=== PATIENT | female | born 1955 | race American Indian/Alaskan Native ===

== ENCOUNTER 2018-04-16 11:36 | Emergency (ER) | payer BC, OTHER ==
[2018-04-16 11:48] VITALS: BP 158/73
[2018-04-16] MEDS ORDERED: MORPHINE IM ONE ×2 (13:18→15:39)
[2018-04-16] MEDS ORDERED: ZOFRAN IM ONE (13:18)
--- NOTE | 2018-04-16 13:24 | Emergency Department Report ---
ED General Adult HPI - General Chief complaint: Extremity Injury, Lower Stated complaint: RT LEG PAIN/BACK PAIN Time Seen by Provider: 04/16/18 12:46 Source: patient Mode of arrival: Wheelchair Limitations: No Limitations - History of Present Illness Initial comments: Patient is 62 years old female with history of bilateral knee arthritis. Patient presented to the ER complaining of right knee pain since yesterday. Patient stated that she was told by her orthopedic doctor that she will need a knee replacement. She stated that she had a steroid injection recently. Patient denied any fever, nausea or vomiting. No recent injury. No other complaints. - Related Data Home Medications Medication Instructions Recorded Confirmed Last Taken Fluticasone [Flonase] 1 spray NS QDAY 08/02/15 08/02/15 Unknown Gabapentin [Neurontin] 100 mg PO Q8HR 08/02/15 08/02/15 08/02/15 Hydrochlorothiazide [Hctz] 12.5 mg PO QDAY 08/02/15 08/02/15 Unknown Loratadine [Claritin] 10 mg PO DAILY 08/02/15 08/02/15 Unknown Meloxicam [Mobic] 15 mg PO DAILY 08/02/15 08/02/15 08/02/15 Previous Rx's Medication Instructions Recorded Last Taken Type oxyCODONE /ACETAMINOPHEN [Percocet 1 tab PO Q6HR PRN #20 tablet 08/02/15 Unknown Rx 5/325] Allergies Allergy/AdvReac Type Severity Reaction Status Date / Time latex Allergy Hives Verified 08/02/15 13:54 ED Review of Systems ROS: Stated complaint: RT LEG PAIN/BACK PAIN Other details as noted in HPI Comment: All other systems reviewed and negative Constitutional: denies: chills, fever Respiratory: denies: cough, shortness of breath Cardiovascular: denies: chest pain, palpitations Gastrointestinal: denies: abdominal pain, nausea Neurological: denies: headache, weakness, numbness, paresthesias ED Past Medical Hx - Past Medical History Hx Hypertension: Yes Hx GERD: Yes Additional medical history: DVT-left leg,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, elevated cholesterol - Surgical History Additional Surgical History: D&C?,Left knee total replacment, - Social History Smoking Status: Never Smoker Substance Use Type: None - Medications Home Medications: Home Medications Medication Instructions Recorded Confirmed Last Taken Type Fluticasone [Flonase] 1 spray NS QDAY 08/02/15 08/02/15 Unknown History Gabapentin [Neurontin] 100 mg PO Q8HR 08/02/15 08/02/15 08/02/15 History Hydrochlorothiazide [Hctz] 12.5 mg PO QDAY 08/02/15 08/02/15 Unknown History Loratadine [Claritin] 10 mg PO DAILY 08/02/15 08/02/15 Unknown History Meloxicam [Mobic] 15 mg PO DAILY 08/02/15 08/02/15 08/02/15 History oxyCODONE /ACETAMINOPHEN [Percocet 1 tab PO Q6HR PRN #20 tablet 08/02/15 Unknown Rx 5/325] ED Physical Exam - General Limitations: No Limitations General appearance: alert, in no apparent distress - Head Head exam: Present: atraumatic, normocephalic, normal inspection - Eye Eye exam: Present: normal appearance - ENT ENT exam: Present: normal exam - Neck Neck exam: Present: normal inspection - Respiratory Respiratory exam: Present: normal lung sounds bilaterally - Cardiovascular Cardiovascular Exam: Present: regular rate, normal rhythm, normal heart sounds - GI/Abdominal GI/Abdominal exam: Present: soft, normal bowel sounds. Absent: distended, tenderness, guarding, rebound, rigid, organomegaly, mass, bruit, pulsatile mass , hernia - Expanded Lower Extremity Exam Right Knee exam: Present: normal inspection, tenderness, swelling. Absent: full ROM ( decreased range of motion), abrasion, laceration, ecchymosis, deformity, crepidus, dislocation, erythema, effusion, pain w/ pronation/supination, posterior draw sign, pain/laxity with valgus, pain/laxity with varus Neuro vascular tendon exam: Present: no vascular compromise - Neurological Exam Neurological exam: Present: alert, oriented X3, CN II-XII intact, normal gait, reflexes normal - Skin Skin exam: Present: warm, intact, normal color ED Course Vital Signs 04/16/18 04/16/18 11:41 14:11 Temperature 98 F Pulse Rate 88 Respiratory 20 18 Rate Blood Pressure 158/73 O2 Sat by Pulse 99 Oximetry Critical care attestation.: If time is entered above; I have spent that time in minutes in the direct care of this critically ill patient, excluding procedure time. ED Disposition Clinical Impression: Knee pain, right Disposition: DC-01 TO HOME OR SELFCARE Is pt being admited?: No Condition: Stable Instructions: Knee Pain (ED), Osteoarthritis (ED) Referrals: PRIMARY CARE, [Primary Care Provider] - 3-5 Days
--- NOTE | 2018-04-16 15:34 | XRay Report ---
FINAL REPORT EXAM: XR KNEE 3V RT HISTORY: rt knee pain TECHNIQUE: Three views of the right knee. PRIORS: None. FINDINGS: No fracture. No dislocation. There is diffuse osteopenia. Tricompartment osteophyte formations are seen. No soft tissue abnormality. No joint effusion. IMPRESSION: Moderate to severe osteoarthritis of the right knee. Diffuse osteopenia.
== END 2018-04-16 16:07 | disposition home or self-care (01) ==
LOC: ED 11:36
DX: M25.561 Pain in right knee (principal); I10 Essential (primary) hypertension; K21.9 Gastro-esophageal reflux disease without esophagitis; E78.00 Pure hypercholesterolemia, unspecified; Z86.718 Personal history of other venous thrombosis and embolism; Z79.01 Long term (current) use of anticoagulants; Z91.040 Latex allergy status; Z79.899 Other long term (current) drug therapy; Z96.652 Presence of left artificial knee joint
CPT/HCPCS: 73562; 96372; 99283; J2270; J2405